=== PATIENT | female | born 1955 | race Caucasian/White ===

== ENCOUNTER 2023-03-14 17:25 | Emergency (ER) | payer MEDICARE, BC ==
[2023-03-14] MEDS ORDERED: Ibuprofen 600 MG Tab PO ONE (18:25)
[2023-03-14] MEDS ORDERED: Acetaminophen 325 MG Tab PO ONE (18:36)
[2023-03-14] MEDS: Acetaminophen 325 MG Tab PO ONE ×2 (18:37→18:38)
== END 2023-03-14 18:50 | disposition home or self-care (01) ==
LOC: JD.ED 17:25
DX: S92.352A Displaced fracture of fifth metatarsal bone, left foot, initial encounter for closed fracture (principal); S93.402A Sprain of unspecified ligament of left ankle, initial encounter; V80.010A Animal-rider injured by fall from or being thrown from horse in noncollision accident, initial encounter
CPT/HCPCS: 73610; 73630; 99283; A9270